=== PATIENT | male | born 1955 | race Caucasian/White ===

== ENCOUNTER → 2016-10-20 | Outpatient (REF) | payer OTHER, SELFPAY ==
[2016-10-20 18:44] LABS: MEAN CORPUSCULAR HEMOGLOBIN 28.9 pg (27.0-33.0); MEAN CORPUSCULAR HGB CONC 33.3 g/dl (32.0-36.5); MEAN CORPUSCULAR VOLUME 86.9 fl (80.0-96.0); RED CELL DISTRIBUTION WIDTH 12.8 % (11.5-14.5)
[2016-10-20 19:15] LABS: ALBUMIN/GLOBULIN RATIO 1.29 (1.00-1.93); ALKALINE PHOSPHATASE 117 U/L (45-117); ALT/SGPT 31 U/L (12-78); ANION GAP 7 MEQ/L (8-16); AST/SGOT 24 U/L (15-37); BILIRUBIN,TOTAL 0.5 MG/DL (0.2-1.0); BLOOD UREA NITROGEN 20 MG/DL (7-18); CALCIUM LEVEL 8.8 MG/DL (8.8-10.2); CARBON DIOXIDE LEVEL 29 MEQ/L (21-32); CHLORIDE LEVEL 104 MEQ/L (98-107); CHOLESTEROL LEVEL 130 MG/DL (<200); CREATININE FOR GFR 1.09 MG/DL (0.70-1.30); FREE T4 0.91 NG/DL (0.76-1.46); GLOMERULAR FILTRATION RATE > 60.0 (>49); GLUCOSE, FASTING 102 MG/DL (80-110); POTASSIUM SERUM 4.5 MEQ/L (3.5-5.1); SODIUM LEVEL 140 MEQ/L (136-145); TOTAL PROTEIN 7.1 GM/DL (6.4-8.2); TRIGLYCERIDES LEVEL 78 MG/DL (<150)
== END ==
LOC: M SFHCADAM 08:09
PROVIDERS: ATTEND Physician Assistant
DX: E78.4 Other hyperlipidemia (principal); I10 Essential (primary) hypertension; E55.9 Vitamin D deficiency, unspecified

== ENCOUNTER 2017-09-09 13:23 | Emergency (ER) | payer SELFPAY, OTHER ==
[2017-09-09 14:41] LABS: BASO % 0.4 % (0.0-1.0); EOS # 0.1 10^3/uL (0.0-0.50); EOS % 0.9 % (0.0-3.0); HEMATOCRIT 43.8 % (42.0-52.0); HEMOGLOBIN 14.5 g/dl (14.0-18.0); IMMATURE GRANULOCYTE % 0.2 % (0-0); KETONE, URINE AUTO RFX NEGATIVE (NEGATIVE); LEUKOCYTE ESTERASE UR AUTO RFX NEGATIVE (NEGATIVE); LYMPH % 24.3 % (24.0-44.0); MEAN CORPUSCULAR HEMOGLOBIN 27.6 pg (27.0-33.0); MEAN CORPUSCULAR HGB CONC 33.1 g/dl (32.0-36.5); MEAN CORPUSCULAR VOLUME 83.3 fl (80.0-96.0); MONO # 0.6 10^3/uL (0.0-0.8); MONO % 7.5 % (0.0-5.0); NEUTROPHILS # 5.4 10^3/uL (1.8-7.7); NEUTROPHILS % 66.7 % (36.0-66.0); NITRITE, URINE AUTO RFX NEGATIVE (NEGATIVE); PLATELET COUNT, AUTOMATED 241 10^3/uL (150-450); RBC, URINE AUTO RFX 0 /HPF (0-3); RED BLOOD COUNT 5.26 10^6/uL (4.30-6.10); SPECIFIC GRAVITY UR AUTO RFX 1.009 (1.002-1.035); SQUAM EPITHELIAL CELL UR AURFX 0 /HPF (0-6); WBC, URINE AUTO RFX 1 /HPF (0-3); WHITE BLOOD COUNT 8.1 10^3/uL (4.0-10.0)
[2017-09-09 15:23] LABS: ANION GAP 5 MEQ/L (8-16); BLOOD UREA NITROGEN 16 MG/DL (7-18); CARBON DIOXIDE LEVEL 28 MEQ/L (21-32); CHLORIDE LEVEL 104 MEQ/L (98-107); CREATININE FOR GFR 1.01 MG/DL (0.70-1.30); GLOMERULAR FILTRATION RATE > 60.0 (>49); GLUCOSE, FASTING 99 MG/DL (70-100); POTASSIUM SERUM 4.6 MEQ/L (3.5-5.1); SODIUM LEVEL 137 MEQ/L (136-145)
== END 2017-09-09 18:29 | disposition home or self-care (01) ==
LOC: M ED 13:23
DX: K40.90 Unilateral inguinal hernia, without obstruction or gangrene, not specified as recurrent (principal); I10 Essential (primary) hypertension; E78.4 Other hyperlipidemia; Z87.891 Personal history of nicotine dependence
CPT/HCPCS: 76857

== ENCOUNTER → 2017-09-18 | Outpatient (CLI) | payer OTHER | LOC: M EKG 11:13 | DX: Z01.818 Encounter for other preprocedural examination (principal); I10 Essential (primary) hypertension; E78.00 Pure hypercholesterolemia, unspecified | CPT/HCPCS: 93005 ==

== ENCOUNTER 2017-09-24 08:33 | Day surgery (SDC) | payer OTHER, SELFPAY ==
[2017-09-24] MEDS ORDERED: PROPOFOL 200 MG/20 ML VIAL As Ordered (08:40)
[2017-09-24] MEDS ORDERED: ROCURONIUM BROMIDE 50 MG/5 ML VIAL As Ordered ×2 (08:40→11:16)
[2017-09-24] MEDS ORDERED: MIDAZOLAM INJ 2 MG/2 ML VIAL (J2250) As Ordered (08:40)
[2017-09-24] MEDS ORDERED: fentaNYL 250 MCG/5 ML INJECTION (J3010) As Ordered (08:40)
[2017-09-24] MEDS ORDERED: LIDOCAINE 2% INJ 100 MG/5 ML SDV (FOR ANES.) As Ordered (08:40)
[2017-09-24] MEDS: LR 1,000 ML IV (09:25)
[2017-09-24] MEDS ORDERED: dexameTHASONE 4 MG/ML 1ML VIAL (J1100) As Ordered ×2 (10:54)
[2017-09-24] MEDS: CEFAZOLIN SOD 1 GM in APPROPRIATE DILUENT 1 EA IV (11:00)
[2017-09-24] MEDS ORDERED: ePHEDrine INJ 50 MG/ML VIAL As Ordered (11:14)
[2017-09-24] MEDS ORDERED: GLYCOPYRROLATE INJ 0.2 MG/ML 2 ML VIAL As Ordered ×2 (11:46)
[2017-09-24] MEDS ORDERED: KETOROLAC 60 MG/2 ML VIAL (J1885) As Ordered (11:47)
[2017-09-24] MEDS ORDERED: ONDANSETRON 4MG/2ML VIAL (J2405) As Ordered (11:47)
[2017-09-24] MEDS: BUPIVACAINE HCL 0.25% 30 ML VIAL As Ordered (12:29)
[2017-09-24] MEDS: LIDOCAINE W/EPINEPHRINE 1% 20ML VIAL As Ordered (12:29)
[2017-09-24] MEDS ORDERED: PERCOCET 5MG/325MG TAB As Ordered (12:46)
[2017-09-24] MEDS: PERCOCET 5MG/325MG TAB PO (12:50)
[2017-09-24] MEDS ORDERED: ONDANSETRON 4MG/2ML VIAL (J2405) IV ×2 (13:00)
[2017-09-24] MEDS ORDERED: fentaNYL 100 MCG/2 ML INJECTION (J3010) IV (13:00)
[2017-09-24] MEDS ORDERED: NS 1,000 ML IV (13:00)
[2017-09-24] MEDS ORDERED: LR 1,000 ML IV (13:00)
[2017-09-24] MEDS ORDERED: NORCO, ANEXSIA 5/325MG TABLET (HYDROcodone/ACETAMINOPHEN) PO (13:00)
== END 2017-09-24 15:45 | disposition home or self-care (01) ==
LOC: M SDC 08:33
DX: K40.90 Unilateral inguinal hernia, without obstruction or gangrene, not specified as recurrent (principal); I10 Essential (primary) hypertension; F41.9 Anxiety disorder, unspecified; E78.00 Pure hypercholesterolemia, unspecified; K21.9 Gastro-esophageal reflux disease without esophagitis; M54.9 Dorsalgia, unspecified; R06.83 Snoring; Z79.899 Other long term (current) drug therapy; Z79.82 Long term (current) use of aspirin
CPT/HCPCS: 49650

== ENCOUNTER → 2018-05-03 | Outpatient (REF) | payer OTHER ==
[2018-05-03 11:07] LABS: HEMATOCRIT 44.2 % (42.0-52.0); HEMOGLOBIN 14.3 g/dl (13.5-17.5); MEAN CORPUSCULAR HEMOGLOBIN 27.4 pg (27.0-33.0); MEAN CORPUSCULAR HGB CONC 32.4 g/dl (32.0-36.5); MEAN CORPUSCULAR VOLUME 84.8 fl (80.0-96.0); PLATELET COUNT, AUTOMATED 246 10^3/uL (150-450); RED BLOOD COUNT 5.21 10^6/uL (4.30-6.10); RED CELL DISTRIBUTION WIDTH 13.5 % (11.5-14.5); WHITE BLOOD COUNT 6.9 10^3/uL (4.0-10.0)
[2018-05-03 11:14] LABS: ALBUMIN 3.9 GM/DL (3.2-5.2); ALBUMIN/GLOBULIN RATIO 1.18 (1.00-1.93); ALKALINE PHOSPHATASE 112 U/L (45-117); ALT/SGPT 30 U/L (12-78); ANION GAP 6 MEQ/L (8-16); AST/SGOT 18 U/L (7-37); BILIRUBIN,TOTAL 0.5 MG/DL (0.2-1.0); BLOOD UREA NITROGEN 23 MG/DL (7-18); CALCIUM LEVEL 9.2 MG/DL (8.8-10.2); CARBON DIOXIDE LEVEL 28 MEQ/L (21-32); CHLORIDE LEVEL 104 MEQ/L (98-107); CHOLESTEROL LEVEL 133 MG/DL (<200); CHOLESTEROL RISK RATIO 3.166 (<5); CREATININE FOR GFR 0.98 MG/DL (0.70-1.30); GLOMERULAR FILTRATION RATE > 60.0 (>49); GLUCOSE, FASTING 96 MG/DL (70-100); HDL CHOLESTEROL 42 MG/DL (>40); LDL CHOLESTEROL 70 MG/DL (<100); NON-HDL-C 91 MG/DL; POTASSIUM SERUM 5.1 MEQ/L (3.5-5.1); SODIUM LEVEL 138 MEQ/L (136-145); TOTAL PROTEIN 7.2 GM/DL (6.4-8.2); TRIGLYCERIDES LEVEL 105 MG/DL (<150)
== END ==
LOC: M SFHCADAM 08:10
DX: I10 Essential (primary) hypertension (principal); E78.4 Other hyperlipidemia
CPT/HCPCS: 80053

== ENCOUNTER → 2019-09-25 | Outpatient (REF) | payer OTHER ==
[~2019-09-25] MED LIST: ASPI81TA26 PO; ATOR40TA75 PO; CALC600T31 PO; FISH1000 PO; LISI10TA4 PO; MULT1TAB10 PO; VITA-110 PO; cholesterol med
[2019-09-25 15:31] LABS: HEMATOCRIT 45.6 % (42.0-52.0); HEMOGLOBIN 15.1 g/dl (13.5-17.5); MEAN CORPUSCULAR HEMOGLOBIN 28.5 pg (27.0-33.0); MEAN CORPUSCULAR HGB CONC 33.1 g/dl (32.0-36.5); PLATELET COUNT, AUTOMATED 273 10^3/uL (150-450); WHITE BLOOD COUNT 9.2 10^3/uL (4.0-10.0)
[2019-09-25 16:05] LABS: ALBUMIN 4.4 GM/DL (3.2-5.2); ALT/SGPT 33 U/L (12-78); BILIRUBIN,TOTAL 0.5 MG/DL (0.2-1.0); BLOOD UREA NITROGEN 18 MG/DL (7-18); CALCIUM LEVEL 9.2 MG/DL (8.8-10.2); CARBON DIOXIDE LEVEL 29 MEQ/L (21-32); CHLORIDE LEVEL 101 MEQ/L (98-107); CHOLESTEROL LEVEL 158 MG/DL (<200); CHOLESTEROL RISK RATIO 4.051 (<5); CREATININE FOR GFR 1.16 MG/DL (0.70-1.30); FREE T4 1.01 NG/DL (0.76-1.46); GLOMERULAR FILTRATION RATE > 60.0 (>49); GLUCOSE, FASTING 91 MG/DL (70-100); HDL CHOLESTEROL 39 MG/DL (>40); LDL CHOLESTEROL 94 MG/DL (<100); NON-HDL-C 119 MG/DL; POTASSIUM SERUM 4.9 MEQ/L (3.5-5.1); SODIUM LEVEL 137 MEQ/L (136-145); TOTAL PROTEIN 7.8 GM/DL (6.4-8.2); TRIGLYCERIDES LEVEL 127 MG/DL (<150)
[2019-09-25 16:07] LABS: CREATININE, URINE 81.9 MG/DL; MALB URINE SIEMENS 7.8 MG/L; MAU/CREAT RATIO 9.5 MCG/MG (0.0-30.0)
== END ==
LOC: M SFHCADAM 12:04
PROVIDERS: ATTEND Physician Assistant
DX: Z12.5 Encounter for screening for malignant neoplasm of prostate (principal); I10 Essential (primary) hypertension; E78.00 Pure hypercholesterolemia, unspecified

== ENCOUNTER → 2021-01-27 | Outpatient (REF) | payer OTHER ==
[~2021-01-27] MED LIST changes: +LISI10TA22 PO; -LISI10TA4 PO
[2021-01-27 13:14] LABS: HEMOGLOBIN 14.6 g/dl (13.5-17.5); MEAN CORPUSCULAR HGB CONC 31.7 g/dl (32.0-36.5); MEAN CORPUSCULAR VOLUME 88.1 fl (80.0-96.0); PLATELET COUNT, AUTOMATED 231 10^3/uL (150-450); RED BLOOD COUNT 5.22 10^6/uL (4.30-6.10); WHITE BLOOD COUNT 6.6 10^3/uL (4.0-10.0)
[2021-01-27 14:42] LABS: ALBUMIN 3.9 GM/DL (3.2-5.2); ALT/SGPT 31 U/L (12-78); BILIRUBIN,TOTAL 0.4 MG/DL (0.2-1.0); BLOOD UREA NITROGEN 21 MG/DL (7-18); CALCIUM LEVEL 9.2 MG/DL (8.8-10.2); CARBON DIOXIDE LEVEL 31 MEQ/L (21-32); CHLORIDE LEVEL 104 MEQ/L (98-107); CHOLESTEROL LEVEL 138 MG/DL (<200); CREATININE FOR GFR 0.99 MG/DL (0.70-1.30); GLOMERULAR FILTRATION RATE > 60.0 (>49); GLUCOSE, FASTING 97 MG/DL (70-100); HDL CHOLESTEROL 46 MG/DL (>40); LDL CHOLESTEROL 74 MG/DL (<100); NON-HDL-C 92 MG/DL; SODIUM LEVEL 139 MEQ/L (136-145); TOTAL PROTEIN 7.1 GM/DL (6.4-8.2); TRIGLYCERIDES LEVEL 91 MG/DL (<150)
[2021-01-27 14:45] LABS: CREATININE, URINE 79.3 MG/DL; MALB URINE SIEMENS < 5.0 MG/L; MAU/CREAT RATIO 6.3 MCG/MG (0.0-30.0)
[2021-01-27 14:49] LABS: TOTAL 25(OH) VITAMIN D 24.1 NG/ML (30.0-100.0)
== END ==
LOC: M SFHCADAM 07:41
PROVIDERS: ATTEND Physician Assistant
DX: E78.00 Pure hypercholesterolemia, unspecified (principal); I10 Essential (primary) hypertension; Z12.5 Encounter for screening for malignant neoplasm of prostate; E55.9 Vitamin D deficiency, unspecified

== ENCOUNTER → 2021-09-18 | Outpatient (REF) | payer OTHER | LOC: M SFHCADAM 12:31 | PROVIDERS: ATTEND Physician Assistant | DX: I10 Essential (primary) hypertension (principal); E78.00 Pure hypercholesterolemia, unspecified ==

== ENCOUNTER → 2022-05-07 | Outpatient (REF) | payer OTHER ==
[2022-05-07 13:36] LABS: BLOOD UREA NITROGEN 20 MG/DL (7-18); CALCIUM LEVEL 9.1 MG/DL (8.8-10.2); CARBON DIOXIDE LEVEL 30 MEQ/L (21-32); CHLORIDE LEVEL 102 MEQ/L (98-107); CREATININE FOR GFR 1.01 MG/DL (0.70-1.30); GLOMERULAR FILTRATION RATE > 60.0 (>49); GLUCOSE, FASTING 97 MG/DL (70-100); POTASSIUM SERUM 4.3 MEQ/L (3.5-5.1); SODIUM LEVEL 137 MEQ/L (136-145)
== END ==
LOC: M SFHCADAM 07:03
PROVIDERS: ATTEND Physician Assistant
DX: E78.00 Pure hypercholesterolemia, unspecified (principal); I10 Essential (primary) hypertension

== ENCOUNTER → 2022-10-29 | Outpatient (REF) | payer OTHER, MEDICARE ==
[2022-10-29 14:33] LABS: HEMATOCRIT 44.8 % (42.0-52.0); HEMOGLOBIN 14.3 g/dl (13.5-17.5); MEAN CORPUSCULAR HGB CONC 31.9 g/dl (32.0-36.5); MEAN CORPUSCULAR VOLUME 87.8 fl (80.0-96.0); PLATELET COUNT, AUTOMATED 258 10^3/uL (150-450)
[2022-10-29 14:43] LABS: ALBUMIN 3.8 G/DL (3.2-5.2); ALKALINE PHOSPHATASE 95 U/L (46-116); ALT/SGPT 21 U/L (7.0-40); AST/SGOT 21 U/L (<34); BILIRUBIN,TOTAL 0.5 MG/DL (0.3-1.2); BLOOD UREA NITROGEN 24 MG/DL (9-23); CALCIUM LEVEL 9.3 MG/DL (8.3-10.6); CARBON DIOXIDE LEVEL 31 MMOL/L (20-31); CHLORIDE LEVEL 102 MMOL/L (98-107); CHOLESTEROL LEVEL 119 MG/DL (<200); CREATININE FOR GFR 0.98 MG/DL (0.70-1.30); FREE T4 0.97 NG/DL (0.89-1.76); GLOMERULAR FILTRATION RATE > 60.0 (>49); GLUCOSE, FASTING 97 MG/DL (74-106); HDL CHOLESTEROL 38.3 MG/DL (>40); LDL CHOLESTEROL 65.9 MG/DL (<100); NON-HDL-C 80.7 MG/DL; POTASSIUM SERUM 4.9 MMOL/L (3.5-5.1); SODIUM LEVEL 138 MMOL/L (136-145); THYROID STIMULATING HORMONE 2.647 uIU/ML (0.55-4.78); TOTAL PROTEIN 6.7 G/DL (5.7-8.2); TRIGLYCERIDES LEVEL 74 MG/DL (<150)
[2022-10-29 15:09] LABS: HEMOGLOBIN A1c 5.8 % (4.0-6.0)
== END ==
LOC: M SFHCADAM 07:19
PROVIDERS: ATTEND Physician Assistant
DX: Z00.00 Encounter for general adult medical examination without abnormal findings (principal); Z12.5 Encounter for screening for malignant neoplasm of prostate; I10 Essential (primary) hypertension; E78.00 Pure hypercholesterolemia, unspecified; R63.5 Abnormal weight gain; Z13.1 Encounter for screening for diabetes mellitus
CPT/HCPCS: 80053; 80061; 83036; 84439; 84443; 85027; G0103

== ENCOUNTER 2023-01-24 12:25 | Inpatient (IN) | payer OTHER, MEDICARE ==
[~2023-01-24] VITALS: Ht 182.9 cm; Wt 122.1 kg
[2023-01-24] MEDS ORDERED: FLUT50SP17 NARES (13:06)
[2023-01-24] MEDS ORDERED: LOSA50TA28 (13:06)
[2023-01-24] MEDS ORDERED: HYDR-3490 PO (13:06)
[2023-01-24 13:36] LABS: BASO # 0.1 10^3/uL (0.0-0.2); BASO % 0.3 % (0.0-1.0); HEMOGLOBIN 15.1 g/dl (13.5-17.5); LYMPH # 1.2 10^3/uL (1.5-5.0); MEAN CORPUSCULAR HEMOGLOBIN 27.6 pg (27.0-33.0); MEAN CORPUSCULAR HGB CONC 32.8 g/dl (32.0-36.5); MEAN CORPUSCULAR VOLUME 83.9 fl (80.0-96.0); MONO # 1.4 10^3/uL (0.0-0.8); MONO % 7.4 % (2.0-8.0); NEUTROPHILS # 16.8 10^3/uL (1.5-8.5); NEUTROPHILS % 85.8 % (36.0-66.0); PLATELET COUNT, AUTOMATED 273 10^3/uL (150-450); RED BLOOD COUNT 5.48 10^6/uL (4.30-6.10); WHITE BLOOD COUNT 19.5 10^3/uL (4.0-10.0)
[2023-01-24 14:13] LABS: ALBUMIN 4.2 G/DL (3.2-5.2); ALKALINE PHOSPHATASE 123 U/L (46-116); ALT/SGPT 23 U/L (7.0-40); AST/SGOT 14 U/L (<34); BILIRUBIN,DIRECT 0.3 MG/DL (<0.4); BILIRUBIN,TOTAL 0.9 MG/DL (0.3-1.2); BLOOD UREA NITROGEN 22 MG/DL (9-23); CALCIUM LEVEL 9.2 MG/DL (8.3-10.6); CARBON DIOXIDE LEVEL 30 MMOL/L (20-31); CHLORIDE LEVEL 95 MMOL/L (98-107); CREATININE FOR GFR 1.03 MG/DL (0.70-1.30); GLOMERULAR FILTRATION RATE > 60.0 (>49); GLUCOSE, FASTING 140 MG/DL (74-106); LIPASE 33 U/L (12-53); POTASSIUM SERUM 4.3 MMOL/L (3.5-5.1); SODIUM LEVEL 134 MMOL/L (136-145); TOTAL PROTEIN 7.4 G/DL (5.7-8.2)
[2023-01-24] MEDS ORDERED: ISOVUE-370 76% 100ML VIAL As Ordered ONE (15:11)
[2023-01-24] MEDS ORDERED: MORPHINE 4 MG/ML 1ML VIAL IV ONE (15:25)
[2023-01-24] MEDS ORDERED: PIPERACILLIN/TAZOBACTAM SOD 3.375 GM in D5W MINI-BAG PLUS 50 ML IV ONE (15:25)
[2023-01-24] MEDS ORDERED: ONDANSETRON 4MG 2ML VIAL IV ONE (15:25)
[2023-01-24] MEDS ORDERED: NS 1,000 ML IV ONE (15:25)
[2023-01-24] MEDS ORDERED: ACETAMINOPHEN 1000MG 100ML IV BAG IV ONE (16:10)
[2023-01-24 17:16] LABS: RSV AMPLIFICATION NEGATIVE (NEGATIVE)
[2023-01-24] MEDS ORDERED: LR 1,000 ML IV ONE (17:50)
[2023-01-24] MEDS ORDERED: THERTAB21 PO (18:32)
[2023-01-24] MEDS ORDERED: HOME MED LIST COMPLETE! XX SCH (18:35)
[2023-01-24] MEDS ORDERED: SODIUM CHLORIDE 0.9% 1000ML IV ONE (18:45)
[2023-01-24] MEDS ORDERED: LACTATED RINGER'S 1000 ML IV ONE (19:15)
[2023-01-24] MEDS ORDERED: ONDANSETRON 4MG 2ML VIAL IV PRN ×2 (19:20→21:20)
[2023-01-24] MEDS ORDERED: MORPHINE 2 MG/ML 1ML VIAL IV PRN (19:20)
[2023-01-24] MEDS ORDERED: MORPHINE 4 MG/ML 1ML VIAL IV PRN (19:20)
[2023-01-24] MEDS ORDERED: ZOSYN 3.375GM VIAL As Ordered ONE (20:06)
[2023-01-24] MEDS ORDERED: ROCURONIUM BROMIDE 50MG/5ML VIAL As Ordered ONE (21:06)
[2023-01-24] MEDS ORDERED: MIDAZOLAM INJ 2MG/2ML VIAL As Ordered ONE (21:06)
[2023-01-24] MEDS ORDERED: VASOPRESSIN INJ 20UNITS/ML 1ML VIAL As Ordered ONE (21:06)
[2023-01-24] MEDS ORDERED: fentaNYL 250 MCG/5 ML INJECTION As Ordered ONE (21:06)
[2023-01-24] MEDS ORDERED: ONDANSETRON 4MG 2ML VIAL As Ordered ONE (21:06)
[2023-01-24] MEDS ORDERED: LIDOCAINE 2% 100MG/5ML SDV (FOR ANES.) As Ordered ONE (21:06)
[2023-01-24] MEDS ORDERED: fentaNYL 100 MCG/2 ML INJECTION As Ordered ONE (21:06)
[2023-01-24] MEDS ORDERED: PHENYLEPHRINE 10MG/ML 1ML VIAL As Ordered ONE (21:06)
[2023-01-24] MEDS ORDERED: METOCLOPRAMIDE INJ 10MG/2ML VIAL As Ordered ONE (21:06)
[2023-01-24] MEDS ORDERED: ACETAMINOPHEN 1000MG 100ML IV BAG As Ordered ONE (21:06)
[2023-01-24] MEDS ORDERED: propofoL 200 MG/20 ML VIAL As Ordered ONE (21:06)
[2023-01-24] MEDS ORDERED: SUGAMMADEX SODIUM 500 MG/5 ML VIAL (BRIDION) As Ordered ONE (21:09)
[2023-01-24] MEDS ORDERED: HYDROMORPHONE HCL 0.5 MG/ 0.5 ML SYRINGE IV PRN (21:20)
[2023-01-24] MEDS ORDERED: LR 1,000 ML IV SCH (21:20)
[2023-01-24] MEDS ORDERED: fentaNYL 100 MCG/2 ML INJECTION IV PRN (21:20)
[2023-01-24] MEDS ORDERED: oxyCODONE 5MG TAB PO PRN (21:20)
[2023-01-24 22:45] VITALS: BP 136/71; TEMP 98.6; O2SAT 92
[2023-01-24] MEDS: KETOROLAC 30 MG/ML 1ML VIAL IV SCH (23:03)
[2023-01-24 23:15] VITALS: BP 137/69; TEMP 98.4; O2SAT 92
[2023-01-24] MEDS ORDERED: hydrALAZINE 20MG/ML 1ML VIAL IV PRN (23:15)
[2023-01-24] MEDS: NS 1,000 ML IV SCH (23:21)
[2023-01-24] MEDS: PIPERACILLIN/TAZOBACTAM SOD 3.375 GM in D5W MINI-BAG PLUS 50 ML IV SCH (23:22)
[2023-01-24 23:45] VITALS: BP 118/71; TEMP 98.5; O2SAT 94
[2023-01-25] VITALS (8 sets, daily range): BP systolic 112–148; BP diastolic 58–81; TEMP 96.8–99.3; O2SAT 91–95
[2023-01-25] MEDS: PIPERACILLIN/TAZOBACTAM SOD 3.375 GM in D5W MINI-BAG PLUS 50 ML IV SCH ×4 (03:44→22:26)
[2023-01-25] MEDS: KETOROLAC 30 MG/ML 1ML VIAL IV SCH ×4 (03:44→22:27)
[2023-01-25 04:11] LABS: HEMATOCRIT 41.8 % (42.0-52.0); HEMOGLOBIN 13.9 g/dl (13.5-17.5); MEAN CORPUSCULAR HEMOGLOBIN 27.9 pg (27.0-33.0); MEAN CORPUSCULAR HGB CONC 33.3 g/dl (32.0-36.5); MEAN CORPUSCULAR VOLUME 83.8 fl (80.0-96.0); PLATELET COUNT, AUTOMATED 182 10^3/uL (150-450); RED BLOOD COUNT 4.99 10^6/uL (4.30-6.10); WHITE BLOOD COUNT 14.5 10^3/uL (4.0-10.0)
[2023-01-25 04:33] LABS: BLOOD UREA NITROGEN 26 MG/DL (9-23); CALCIUM LEVEL 8.4 MG/DL (8.3-10.6); CARBON DIOXIDE LEVEL 28 MMOL/L (20-31); CHLORIDE LEVEL 99 MMOL/L (98-107); CREATININE FOR GFR 1.21 MG/DL (0.70-1.30); GLOMERULAR FILTRATION RATE > 60.0 (>49); GLUCOSE, FASTING 125 MG/DL (74-106); POTASSIUM SERUM 4.7 MMOL/L (3.5-5.1); SODIUM LEVEL 134 MMOL/L (136-145)
[2023-01-25] MEDS ORDERED: NS 500 ML IV ONE (04:50)
[2023-01-25] MEDS: NS 1,000 ML IV SCH (08:23)
[2023-01-25] MEDS ORDERED: GLUCAGON INJ 1MG VIAL SC PRN (10:55)
[2023-01-25] MEDS ORDERED: DEXTROSE 50% 50ML SYRINGE IV PRN (10:55)
[2023-01-25] MEDS ORDERED: GLUCOSE 4GM CHEW TABLET PO PRN (10:55)
[2023-01-25] MEDS: D5W/0.45% SODIUM CHLORIDE 1,000 ML IV SCH ×2 (11:50→22:26)
[2023-01-25] MEDS ORDERED: THIAMINE INJection 500 MG in NS 100 ML IV SCH (13:00)
[2023-01-26 02:00] VITALS: BP 138/82; TEMP 98.8; O2SAT 91
[2023-01-26] MEDS: KETOROLAC 30 MG/ML 1ML VIAL IV SCH (04:33)
[2023-01-26] MEDS: PIPERACILLIN/TAZOBACTAM SOD 3.375 GM in D5W MINI-BAG PLUS 50 ML IV SCH ×4 (04:33→22:35)
[2023-01-26 06:00] VITALS: BP 127/82; TEMP 99; O2SAT 91
[2023-01-26 06:24] LABS: HEMATOCRIT 37.9 % (42.0-52.0); HEMOGLOBIN 12.5 g/dl (13.5-17.5); MEAN CORPUSCULAR HEMOGLOBIN 27.7 pg (27.0-33.0); PLATELET COUNT, AUTOMATED 178 10^3/uL (150-450); RED BLOOD COUNT 4.51 10^6/uL (4.30-6.10); WHITE BLOOD COUNT 13.6 10^3/uL (4.0-10.0)
[2023-01-26 06:45] LABS: CREATININE FOR GFR 1.38 MG/DL (0.70-1.30); GLOMERULAR FILTRATION RATE 54.9 (>49)
[2023-01-26 08:00] VITALS: BP 136/92; TEMP 98.1; O2SAT 90
[2023-01-26] MEDS: D5W/0.45% SODIUM CHLORIDE 1,000 ML IV SCH ×3 (11:17→22:35)
[2023-01-26 12:00] VITALS: BP 114/71; TEMP 98.2; O2SAT 90
[2023-01-26 16:00] VITALS: BP 148/93; TEMP 98.8; O2SAT 93
[2023-01-26 21:00] VITALS: BP 149/89; TEMP 98.3; O2SAT 93
[2023-01-27 02:00] VITALS: BP 152/90; TEMP 99; O2SAT 93
[2023-01-27] MEDS: D5W/0.9% SODIUM CHLORIDE 1,000 ML IV SCH ×3 (03:00→16:42)
[2023-01-27] MEDS: PIPERACILLIN/TAZOBACTAM SOD 3.375 GM in D5W MINI-BAG PLUS 50 ML IV SCH ×3 (04:40→16:02)
[2023-01-27 05:49] LABS: HEMOGLOBIN 13.1 g/dl (13.5-17.5); MEAN CORPUSCULAR HEMOGLOBIN 27.4 pg (27.0-33.0); MEAN CORPUSCULAR HGB CONC 32.8 g/dl (32.0-36.5); MEAN CORPUSCULAR VOLUME 83.7 fl (80.0-96.0); PLATELET COUNT, AUTOMATED 197 10^3/uL (150-450); RED BLOOD COUNT 4.78 10^6/uL (4.30-6.10)
[2023-01-27 06:00] VITALS: BP 155/94; TEMP 99; O2SAT 92
[2023-01-27 06:15] LABS: BLOOD UREA NITROGEN 22 MG/DL (9-23); CALCIUM LEVEL 8.5 MG/DL (8.3-10.6); CARBON DIOXIDE LEVEL 30 MMOL/L (20-31); CHLORIDE LEVEL 96 MMOL/L (98-107); GLOMERULAR FILTRATION RATE > 60.0 (>49); GLUCOSE, FASTING 131 MG/DL (74-106); POTASSIUM SERUM 3.7 MMOL/L (3.5-5.1); SODIUM LEVEL 132 MMOL/L (136-145)
[2023-01-27] MEDS: D5W/0.45% SODIUM CHLORIDE 1,000 ML IV SCH (06:48)
[2023-01-27 10:00] VITALS: BP 155/94; TEMP 97.7; O2SAT 90
[2023-01-27 14:00] VITALS: BP 153/89; TEMP 99.1; O2SAT 91
[2023-01-27 18:00] VITALS: BP 143/83; TEMP 99.1; O2SAT 90
[2023-01-27 20:50] VITALS: BP 150/99; TEMP 99; O2SAT 90
[2023-01-27] MEDS: LOSARTAN 50MG TABLET PO SCH (21:56)
[2023-01-27] MEDS: PIPERACILLIN/TAZOBACTAM SOD 4.5 GM in D5W MINI-BAG PLUS 50 ML IV SCH (21:57)
[2023-01-28 01:50] VITALS: BP 135/78; TEMP 98.4; O2SAT 90
[2023-01-28] MEDS: PIPERACILLIN/TAZOBACTAM SOD 4.5 GM in D5W MINI-BAG PLUS 50 ML IV SCH ×4 (04:04→22:19)
[2023-01-28 05:30] VITALS: BP 148/96; TEMP 98.1; O2SAT 94
[2023-01-28 06:50] LABS: HEMATOCRIT 40.1 % (42.0-52.0); HEMOGLOBIN 12.9 g/dl (13.5-17.5); MEAN CORPUSCULAR HEMOGLOBIN 27.7 pg (27.0-33.0); MEAN CORPUSCULAR HGB CONC 32.2 g/dl (32.0-36.5); MEAN CORPUSCULAR VOLUME 86.2 fl (80.0-96.0); PLATELET COUNT, AUTOMATED 232 10^3/uL (150-450); RED BLOOD COUNT 4.65 10^6/uL (4.30-6.10)
[2023-01-28 07:11] LABS: ERYTHROCYTE SEDIMENTATION RATE 108 mm/hr (0-20)
[2023-01-28 07:24] LABS: BLOOD UREA NITROGEN 20 MG/DL (9-23); CARBON DIOXIDE LEVEL 34 MMOL/L (20-31); CHLORIDE LEVEL 97 MMOL/L (98-107); GLOMERULAR FILTRATION RATE > 60.0 (>49); GLUCOSE, FASTING 116 MG/DL (74-106); MAGNESIUM LEVEL 2.2 MG/DL (1.8-2.4); PHOSPHORUS LEVEL 2.6 MG/DL (2.4-5.1); POTASSIUM SERUM 3.4 MMOL/L (3.5-5.1); SODIUM LEVEL 137 MMOL/L (136-145)
[2023-01-28] MEDS: D5W/0.9% SODIUM CHLORIDE 1,000 ML IV SCH ×2 (07:36→13:20)
[2023-01-28] MEDS ORDERED: DOCUSATE SODIUM 100MG CAPSULE PO SCH (09:00)
[2023-01-28] MEDS: LOSARTAN 50MG TABLET PO SCH ×2 (09:38→20:17)
[2023-01-28 10:00] VITALS: BP 140/88; TEMP 97.9; O2SAT 96
[2023-01-28] MEDS ORDERED: PILL CUTTER 1 EACH XX PRN (13:40)
[2023-01-28 14:00] VITALS: BP 136/80; TEMP 98.1; O2SAT 94
[2023-01-28] MEDS: SIMETHICONE 80MG CHEW TAB PO SCH ×3 (14:14→20:18)
[2023-01-28] MEDS: KCL 10MEQ/100ML SWI (KRUN) 10 MEQ in IV 1 EA IV SCH ×4 (14:14→19:26)
[2023-01-28 18:00] VITALS: BP 147/85; TEMP 99.5; O2SAT 93
[2023-01-28] MEDS: DOCUSATE SOD LIQ 100MG/10ML UDC GT SCH (20:17)
[2023-01-28 21:00] VITALS: BP 146/89; TEMP 99.1; O2SAT 92
[2023-01-29 02:00] VITALS: BP 144/84; TEMP 98.8; O2SAT 92
[2023-01-29] MEDS: D5W/0.9% SODIUM CHLORIDE 1,000 ML IV SCH ×4 (04:30→23:33)
[2023-01-29] MEDS: PIPERACILLIN/TAZOBACTAM SOD 4.5 GM in D5W MINI-BAG PLUS 50 ML IV SCH ×2 (04:34→08:47)
[2023-01-29 06:00] VITALS: BP 140/81; TEMP 98.6; O2SAT 93
[2023-01-29 06:11] LABS: HEMOGLOBIN 12.6 g/dl (13.5-17.5); MEAN CORPUSCULAR HEMOGLOBIN 27.7 pg (27.0-33.0); MEAN CORPUSCULAR HGB CONC 33.2 g/dl (32.0-36.5); MEAN CORPUSCULAR VOLUME 83.5 fl (80.0-96.0); PLATELET COUNT, AUTOMATED 252 10^3/uL (150-450); RED BLOOD COUNT 4.55 10^6/uL (4.30-6.10)
[2023-01-29 06:18] LABS: ERYTHROCYTE SEDIMENTATION RATE 86 mm/hr (0-20)
[2023-01-29] MEDS: GASTROGRAFIN SOLUTION 30ML PO SCH ×2 (06:36→07:02)
[2023-01-29 06:43] LABS: BLOOD UREA NITROGEN 18 MG/DL (9-23); CALCIUM LEVEL 8.3 MG/DL (8.3-10.6); CARBON DIOXIDE LEVEL 30 MMOL/L (20-31); CHLORIDE LEVEL 96 MMOL/L (98-107); CREATININE FOR GFR 0.91 MG/DL (0.70-1.30); GLOMERULAR FILTRATION RATE > 60.0 (>49); GLUCOSE, FASTING 118 MG/DL (74-106); POTASSIUM SERUM 3.5 MMOL/L (3.5-5.1); SODIUM LEVEL 134 MMOL/L (136-145)
[2023-01-29] MEDS ORDERED: ISOVUE-370 76% 100ML VIAL As Ordered ONE (07:56)
[2023-01-29] MEDS: ATORVASTATIN 20 MG TAB PO SCH (08:46)
[2023-01-29] MEDS: SIMETHICONE 80MG CHEW TAB PO SCH ×4 (08:46→21:12)
[2023-01-29] MEDS: DOCUSATE SOD LIQ 100MG/10ML UDC GT SCH ×2 (08:46→21:24)
[2023-01-29] MEDS: LOSARTAN 50MG TABLET PO SCH ×2 (08:47→21:11)
[2023-01-29] MEDS: IPRATROPIUM 0.5MG/ALBUTEROL 2.5MG INH SOL UD 3ML (DUONEB) NEB SCH ×3 (11:18→20:30)
[2023-01-29 14:00] VITALS: BP 134/81; TEMP 98.6; O2SAT 91
[2023-01-29] MEDS: metroNIDAZOLE 500 MG in IV 1 EA IV SCH (16:25)
[2023-01-29] MEDS: CIPROFLOXACIN 400 MG in IV 1 EA IV SCH (16:25)
[2023-01-29 19:47] VITALS: BP 134/76; TEMP 98.6; O2SAT 94
[2023-01-30] MEDS: metroNIDAZOLE 500 MG in IV 1 EA IV SCH ×3 (01:05→17:30)
[2023-01-30 01:50] VITALS: BP 134/76; TEMP 98.1; O2SAT 88
[2023-01-30] MEDS: CIPROFLOXACIN 400 MG in IV 1 EA IV SCH ×2 (03:27→16:15)
[2023-01-30 05:31] VITALS: BP 141/82; TEMP 98.4; O2SAT 90
[2023-01-30] MEDS: D5W/0.9% SODIUM CHLORIDE 1,000 ML IV SCH ×2 (06:17→13:50)
[2023-01-30 06:31] LABS: HEMATOCRIT 35.6 % (42.0-52.0); HEMOGLOBIN 11.6 g/dl (13.5-17.5); MEAN CORPUSCULAR HEMOGLOBIN 27.5 pg (27.0-33.0); MEAN CORPUSCULAR HGB CONC 32.6 g/dl (32.0-36.5); MEAN CORPUSCULAR VOLUME 84.4 fl (80.0-96.0); PLATELET COUNT, AUTOMATED 237 10^3/uL (150-450); RED BLOOD COUNT 4.22 10^6/uL (4.30-6.10); WHITE BLOOD COUNT 11.6 10^3/uL (4.0-10.0)
[2023-01-30 06:57] LABS: BLOOD UREA NITROGEN 12 MG/DL (9-23); CALCIUM LEVEL 7.9 MG/DL (8.3-10.6); CARBON DIOXIDE LEVEL 32 MMOL/L (20-31); CHLORIDE LEVEL 96 MMOL/L (98-107); CREATININE FOR GFR 0.84 MG/DL (0.70-1.30); GLOMERULAR FILTRATION RATE > 60.0 (>49); GLUCOSE, FASTING 121 MG/DL (74-106); POTASSIUM SERUM 3.4 MMOL/L (3.5-5.1); SODIUM LEVEL 133 MMOL/L (136-145)
[2023-01-30] MEDS: IPRATROPIUM 0.5MG/ALBUTEROL 2.5MG INH SOL UD 3ML (DUONEB) NEB SCH ×4 (07:46→20:51)
[2023-01-30] MEDS: LOSARTAN 50MG TABLET PO SCH ×2 (09:32→22:25)
[2023-01-30] MEDS: SIMETHICONE 80MG CHEW TAB PO SCH ×4 (09:32→22:25)
[2023-01-30] MEDS: DOCUSATE SOD LIQ 100MG/10ML UDC GT SCH ×2 (09:32→22:24)
[2023-01-30] MEDS: ATORVASTATIN 20 MG TAB PO SCH (09:32)
[2023-01-30 10:00] VITALS: BP 137/79; TEMP 98.8; O2SAT 93
[2023-01-30 14:00] VITALS: BP 136/78; TEMP 98.8; O2SAT 94
[2023-01-30 18:00] VITALS: BP 139/78; TEMP 99; O2SAT 92
[2023-01-31] VITALS: BP 136/77; TEMP 98.4; O2SAT 91
[2023-01-31] MEDS: D5W/0.9% SODIUM CHLORIDE 1,000 ML IV SCH ×4 (00:01→20:30)
[2023-01-31] MEDS: metroNIDAZOLE 500 MG in IV 1 EA IV SCH ×3 (00:01→17:07)
[2023-01-31] MEDS: CIPROFLOXACIN 400 MG in IV 1 EA IV SCH ×2 (04:57→15:58)
[2023-01-31 06:26] VITALS: BP 134/74; TEMP 98.1; O2SAT 94
[2023-01-31 06:39] LABS: HEMATOCRIT 34.9 % (42.0-52.0); HEMOGLOBIN 11.5 g/dl (13.5-17.5); MEAN CORPUSCULAR HEMOGLOBIN 27.4 pg (27.0-33.0); MEAN CORPUSCULAR VOLUME 83.3 fl (80.0-96.0); PLATELET COUNT, AUTOMATED 278 10^3/uL (150-450); RED BLOOD COUNT 4.19 10^6/uL (4.30-6.10); WHITE BLOOD COUNT 10.9 10^3/uL (4.0-10.0)
[2023-01-31 06:46] LABS: BLOOD UREA NITROGEN 9 MG/DL (9-23); CALCIUM LEVEL 8.6 MG/DL (8.3-10.6); CARBON DIOXIDE LEVEL 31 MMOL/L (20-31); CHLORIDE LEVEL 96 MMOL/L (98-107); CREATININE FOR GFR 0.81 MG/DL (0.70-1.30); GLOMERULAR FILTRATION RATE > 60.0 (>49); GLUCOSE, FASTING 136 MG/DL (74-106); POTASSIUM SERUM 3.2 MMOL/L (3.5-5.1); SODIUM LEVEL 134 MMOL/L (136-145)
[2023-01-31] MEDS: IPRATROPIUM 0.5MG/ALBUTEROL 2.5MG INH SOL UD 3ML (DUONEB) NEB SCH ×4 (07:44→20:03)
[2023-01-31] MEDS ORDERED: KCL 10MEQ/100ML SWI (KRUN) 10 MEQ in IV 1 EA IV ONE (09:00)
[2023-01-31] MEDS: SIMETHICONE 80MG CHEW TAB PO SCH ×4 (09:05→21:56)
[2023-01-31] MEDS: ATORVASTATIN 20 MG TAB PO SCH (09:05)
[2023-01-31] MEDS: DOCUSATE SOD LIQ 100MG/10ML UDC GT SCH ×2 (09:05→21:54)
[2023-01-31] MEDS: LOSARTAN 50MG TABLET PO SCH ×2 (09:09→21:56)
[2023-01-31 10:00] VITALS: BP 135/76; TEMP 98.2; O2SAT 94
[2023-01-31 14:00] VITALS: BP 145/85; TEMP 99.6; O2SAT 90
[2023-01-31] MEDS: BISACODYL 10MG SUPP PR SCH (15:58)
[2023-01-31 18:00] VITALS: BP 145/80; TEMP 99.5; O2SAT 91
[2023-01-31 21:00] VITALS: BP 140/80; TEMP 97.7; O2SAT 93
[2023-02-01] MEDS: metroNIDAZOLE 500 MG in IV 1 EA IV SCH ×3 (00:57→17:24)
[2023-02-01 02:00] VITALS: BP 136/80; TEMP 99; O2SAT 93
[2023-02-01 04:00] VITALS: BP 152/91; TEMP 97.7; O2SAT 93
[2023-02-01] MEDS: CIPROFLOXACIN 400 MG in IV 1 EA IV SCH ×2 (04:22→15:28)
[2023-02-01] MEDS: D5W/0.9% SODIUM CHLORIDE 1,000 ML IV SCH ×2 (06:51→15:28)
[2023-02-01] MEDS: IPRATROPIUM 0.5MG/ALBUTEROL 2.5MG INH SOL UD 3ML (DUONEB) NEB SCH ×4 (07:20→20:27)
[2023-02-01 09:13] LABS: HEMATOCRIT 36.8 % (42.0-52.0); HEMOGLOBIN 11.9 g/dl (13.5-17.5); MEAN CORPUSCULAR HEMOGLOBIN 27.5 pg (27.0-33.0); MEAN CORPUSCULAR HGB CONC 32.3 g/dl (32.0-36.5); MEAN CORPUSCULAR VOLUME 85.2 fl (80.0-96.0); PLATELET COUNT, AUTOMATED 342 10^3/uL (150-450); RED BLOOD COUNT 4.32 10^6/uL (4.30-6.10); WHITE BLOOD COUNT 11.8 10^3/uL (4.0-10.0)
[2023-02-01 09:33] LABS: BLOOD UREA NITROGEN 8 MG/DL (9-23); CALCIUM LEVEL 8.7 MG/DL (8.3-10.6); CARBON DIOXIDE LEVEL 30 MMOL/L (20-31); CHLORIDE LEVEL 96 MMOL/L (98-107); CREATININE FOR GFR 0.82 MG/DL (0.70-1.30); GLOMERULAR FILTRATION RATE > 60.0 (>49); GLUCOSE, FASTING 118 MG/DL (74-106); POTASSIUM SERUM 3.3 MMOL/L (3.5-5.1); SODIUM LEVEL 136 MMOL/L (136-145)
[2023-02-01] MEDS: DOCUSATE SOD LIQ 100MG/10ML UDC GT SCH ×2 (09:55→21:18)
[2023-02-01] MEDS: LOSARTAN 50MG TABLET PO SCH ×2 (09:55→21:18)
[2023-02-01] MEDS: SIMETHICONE 80MG CHEW TAB PO SCH ×4 (09:56→21:18)
[2023-02-01] MEDS: BISACODYL 10MG SUPP PR SCH (09:56)
[2023-02-01] MEDS: ATORVASTATIN 20 MG TAB PO SCH (09:56)
[2023-02-01 10:00] VITALS: BP 144/79; TEMP 98.1; O2SAT 92
[2023-02-01] MEDS ORDERED: KCL 10MEQ/100ML SWI (KRUN) 10 MEQ in IV 1 EA IV ONE (10:00)
[2023-02-01 14:00] VITALS: BP 136/79; TEMP 98.2; O2SAT 95
[2023-02-01 18:00] VITALS: BP 138/80; TEMP 98.2; O2SAT 93
[2023-02-01] MEDS ORDERED: FAT EMULSION IV 250 ML IV ONE (18:00)
[2023-02-01 20:52] VITALS: BP 128/80; TEMP 98.8; O2SAT 92
[2023-02-01] MEDS: AMINO AC/ELECTROLYTE/DEX/CALC 1,000 ML IV SCH (21:24)
[2023-02-02] VITALS (10 sets, daily range): BP systolic 132–142; BP diastolic 62–81; TEMP 98.1–98.6; O2SAT 89–95
[2023-02-02] MEDS: metroNIDAZOLE 500 MG in IV 1 EA IV SCH ×3 (00:25→17:24)
[2023-02-02] MEDS: CIPROFLOXACIN 400 MG in IV 1 EA IV SCH ×2 (04:55→16:04)
[2023-02-02 06:09] LABS: HEMATOCRIT 35.5 % (42.0-52.0); HEMOGLOBIN 11.7 g/dl (13.5-17.5); MEAN CORPUSCULAR HEMOGLOBIN 27.4 pg (27.0-33.0); MEAN CORPUSCULAR VOLUME 83.1 fl (80.0-96.0); PLATELET COUNT, AUTOMATED 353 10^3/uL (150-450); RED BLOOD COUNT 4.27 10^6/uL (4.30-6.10); WHITE BLOOD COUNT 11.6 10^3/uL (4.0-10.0)
[2023-02-02 06:32] LABS: BLOOD UREA NITROGEN 7 MG/DL (9-23); CALCIUM LEVEL 8.9 MG/DL (8.3-10.6); CARBON DIOXIDE LEVEL 29 MMOL/L (20-31); CHLORIDE LEVEL 95 MMOL/L (98-107); GLOMERULAR FILTRATION RATE > 60.0 (>49); GLUCOSE, FASTING 136 MG/DL (74-106); MAGNESIUM LEVEL 1.8 MG/DL (1.8-2.4); POTASSIUM SERUM 3.4 MMOL/L (3.5-5.1); SODIUM LEVEL 132 MMOL/L (136-145)
[2023-02-02] MEDS: IPRATROPIUM 0.5MG/ALBUTEROL 2.5MG INH SOL UD 3ML (DUONEB) NEB SCH ×3 (07:41→19:48)
[2023-02-02] MEDS: SIMETHICONE 80MG CHEW TAB PO SCH ×4 (08:28→20:08)
[2023-02-02] MEDS: BISACODYL 10MG SUPP PR SCH ×4 (08:28→20:08)
[2023-02-02] MEDS: DOCUSATE SOD LIQ 100MG/10ML UDC GT SCH ×2 (08:28→20:07)
[2023-02-02] MEDS: LOSARTAN 50MG TABLET PO SCH ×2 (08:28→20:08)
[2023-02-02] MEDS: ATORVASTATIN 20 MG TAB PO SCH (08:29)
[2023-02-02] MEDS: AMINO AC/ELECTROLYTE/DEX/CALC 1,000 ML IV SCH ×2 (09:43→18:23)
[2023-02-02] MEDS ORDERED: BISACODYL 10MG SUPP PR ONE (12:00)
[2023-02-02] MEDS ORDERED: FAT EMULSION IV 250 ML IV ONE (18:00)
[2023-02-03] VITALS (7 sets, daily range): BP systolic 130–137; BP diastolic 72–78; TEMP 97.9–98.6; O2SAT 90–92
[2023-02-03] MEDS: metroNIDAZOLE 500 MG in IV 1 EA IV SCH ×3 (01:15→17:53)
[2023-02-03] MEDS: CIPROFLOXACIN 400 MG in IV 1 EA IV SCH ×2 (05:04→16:39)
[2023-02-03] MEDS: AMINO AC/ELECTROLYTE/DEX/CALC 1,000 ML IV SCH (05:31)
[2023-02-03] MEDS: IPRATROPIUM 0.5MG/ALBUTEROL 2.5MG INH SOL UD 3ML (DUONEB) NEB SCH ×3 (07:44→19:47)
[2023-02-03] MEDS: BISACODYL 10MG SUPP PR SCH (09:00)
[2023-02-03] MEDS: ATORVASTATIN 20 MG TAB PO SCH (09:33)
[2023-02-03] MEDS: DOCUSATE SOD LIQ 100MG/10ML UDC GT SCH (09:33)
[2023-02-03] MEDS: SIMETHICONE 80MG CHEW TAB PO SCH ×4 (09:33→19:50)
[2023-02-03] MEDS: LOSARTAN 50MG TABLET PO SCH ×2 (09:34→19:49)
[2023-02-03] MEDS: DOCUSATE SODIUM 100MG CAPSULE PO SCH (19:49)
[2023-02-04 00:10] VITALS: BP 135/73; TEMP 98.1; O2SAT 91
[2023-02-04] MEDS: metroNIDAZOLE 500 MG in IV 1 EA IV SCH ×2 (00:36→08:21)
[2023-02-04] MEDS: CIPROFLOXACIN 400 MG in IV 1 EA IV SCH (04:01)
[2023-02-04 04:19] VITALS: BP 132/72; TEMP 98.6; O2SAT 92
[2023-02-04] MEDS: IPRATROPIUM 0.5MG/ALBUTEROL 2.5MG INH SOL UD 3ML (DUONEB) NEB SCH (07:47)
[2023-02-04] MEDS: DOCUSATE SODIUM 100MG CAPSULE PO SCH (08:21)
[2023-02-04] MEDS: SIMETHICONE 80MG CHEW TAB PO SCH (08:21)
[2023-02-04 08:22] VITALS: BP 145/75
[2023-02-04] MEDS: LOSARTAN 50MG TABLET PO SCH (08:22)
[2023-02-04] MEDS: ATORVASTATIN 20 MG TAB PO SCH (08:23)
[2023-02-04 10:00] VITALS: BP 137/75; TEMP 97.5; O2SAT 94
== END 2023-02-04 12:39 | disposition home or self-care (01) | DRG 854 ==
LOC: EDBD 12:25 → M ED 12:25 → M SDC 16:46 → M PCU 22:35 → M SDC 01-25 10:35 → M PCU 01-25 10:35 → M MSPAV 01-25 18:48
PROVIDERS: ADMIT Internal Medicine; ATTEND Surgery
PROC: 0DTJ4ZZ Resection of Appendix, Percutaneous Endoscopic Approach (ICD-10-PCS; principal; 2023-01-24 19:00)
DX: A41.9 Sepsis, unspecified organism (principal); K35.20 Acute appendicitis with generalized peritonitis, without abscess; K91.89 Other postprocedural complications and disorders of digestive system; K56.7 Ileus, unspecified; E66.9 Obesity, unspecified; Z68.36 Body mass index [BMI] 36.0-36.9, adult; E78.5 Hyperlipidemia, unspecified; I10 Essential (primary) hypertension; Z79.82 Long term (current) use of aspirin; Z79.899 Other long term (current) drug therapy

== ENCOUNTER → 2023-06-25 | Outpatient (REF) | payer OTHER, MEDICARE ==
[~2023-06-25] MED LIST changes: +FLUT50SP17 NARES; +HYDR-3490 PO; +LOSA50TA28; +THERTAB21 PO
[2023-06-25 13:49] LABS: BASO # 0.1 10^3/uL (0.0-0.2); BASO % 0.9 % (0.0-1.0); EOS # 0.1 10^3/uL (0.0-0.5); EOS % 1.6 % (0.0-3.0); HEMATOCRIT 39.5 % (42.0-52.0); LYMPH # 1.9 10^3/uL (1.5-5.0); LYMPH % 27.9 % (24.0-44.0); MEAN CORPUSCULAR HEMOGLOBIN 28.3 pg (27.0-33.0); MEAN CORPUSCULAR HGB CONC 32.9 g/dl (32.0-36.5); MEAN CORPUSCULAR VOLUME 85.9 fl (80.0-96.0); MONO # 0.7 10^3/uL (0.0-0.8); MONO % 10.6 % (2.0-8.0); NEUTROPHILS # 4.1 10^3/uL (1.5-8.5); NEUTROPHILS % 58.7 % (36.0-66.0); PLATELET COUNT, AUTOMATED 220 10^3/uL (150-450); WHITE BLOOD COUNT 6.9 10^3/uL (4.0-10.0)
[2023-06-25 14:12] LABS: TOTAL IRON BINDING CAPACITY 349 UG/DL (250-425)
[2023-06-25 14:13] LABS: MAGNESIUM LEVEL 1.8 MG/DL (1.8-2.4)
[2023-06-25 14:14] LABS: IRON (FE) 66 UG/DL (65-175); PERCENT SATURATION 18.9 % (19.7-50.0)
[2023-06-25 14:19] LABS: FERRITIN 27.8 NG/ML (10.5-307.3)
[2023-06-25 14:20] LABS: VITAMIN B12 LEVEL 644 PG/ML (211-911)
[2023-06-25 14:21] LABS: FOLATE > 24.0 NG/ML (>5.4)
== END ==
LOC: M SFHCADAM 08:17
PROVIDERS: ATTEND Physician Assistant
DX: E78.00 Pure hypercholesterolemia, unspecified (principal); I10 Essential (primary) hypertension; D64.9 Anemia, unspecified; E83.42 Hypomagnesemia

== ENCOUNTER → 2024-07-22 | Outpatient (REF) | payer MEDICARE ==
[~2024-07-22] MED LIST changes: -FLUT50SP17 NARES; +FLUTISP NARES
[2024-07-22 13:52] LABS: HEMOGLOBIN A1c 5.8 % (4.0-6.0)
[2024-07-22 13:59] LABS: ALBUMIN 3.9 G/DL (3.2-5.2); ALKALINE PHOSPHATASE 107 U/L (40-129); ALT/SGPT 37 U/L (7.0-40); AST/SGOT 28 U/L (<34); BILIRUBIN,TOTAL 0.8 MG/DL (0.3-1.2); BLOOD UREA NITROGEN 25 MG/DL (9-23); CALCIUM LEVEL 10.1 MG/DL (8.3-10.6); CARBON DIOXIDE LEVEL 32 MMOL/L (20-31); CHLORIDE LEVEL 99 MMOL/L (98-107); CHOLESTEROL LEVEL 159 MG/DL (<200); CHOLESTEROL RISK RATIO 3.96 (<5); CREATININE FOR GFR 1.06 MG/DL (0.70-1.30); GLOMERULAR FILTRATION RATE > 60.0 (>49); GLUCOSE, FASTING 93 MG/DL (74-106); HDL CHOLESTEROL 40.1 MG/DL (>40); LDL CHOLESTEROL 95.9 MG/DL (<100); MAGNESIUM LEVEL 2.1 MG/DL (1.8-2.4); NON-HDL-C 118.9 MG/DL; POTASSIUM SERUM 4.5 MMOL/L (3.5-5.1); PSA SCREENING 3.12 NG/ML (< 4.00); SODIUM LEVEL 136 MMOL/L (136-145); TOTAL PROTEIN 7.2 G/DL (5.7-8.2); TRIGLYCERIDES LEVEL 115 MG/DL (<150)
[2024-07-22 14:00] LABS: THYROID STIMULATING HORMONE 2.809 uIU/ML (0.55-4.78)
== END ==
LOC: M SFHCADAM 08:25
PROVIDERS: ATTEND Physician Assistant
DX: I10 Essential (primary) hypertension (principal); E78.00 Pure hypercholesterolemia, unspecified; F41.9 Anxiety disorder, unspecified; E83.42 Hypomagnesemia; Z12.5 Encounter for screening for malignant neoplasm of prostate; Z13.1 Encounter for screening for diabetes mellitus
CPT/HCPCS: 80053; 80061; 83036; 83735; 84439; 84443; G0103

== ENCOUNTER 2024-12-03 10:01 | Day surgery (SDC) | payer MEDICARE ==
[~2024-12-03] VITALS: Ht 182.9 cm; Wt 113.4 kg
[~2024-12-03 10:01] MED LIST changes: +ESSETAB4 PO; -LOSA50TA28; +LOSA50TA28 PO; +MAG-400T7 PO
[2024-12-03 12:22] VITALS: BP 126/87; O2SAT 97
== END 2024-12-03 12:27 | disposition home or self-care (01) ==
LOC: M OPP 10:01
PROVIDERS: ATTEND Surgery
DX: Z12.11 Encounter for screening for malignant neoplasm of colon (principal); R19.5 Other fecal abnormalities; D12.2 Benign neoplasm of ascending colon; K57.30 Diverticulosis of large intestine without perforation or abscess without bleeding; K64.2 Third degree hemorrhoids; Z79.82 Long term (current) use of aspirin; Z79.51 Long term (current) use of inhaled steroids; Z79.899 Other long term (current) drug therapy; Z87.891 Personal history of nicotine dependence

== ENCOUNTER → 2025-03-23 | Outpatient (REF) | payer MEDICARE, MEDICAID ==
[2025-03-23 13:34] LABS: PLATELET COUNT, AUTOMATED 235 10^3/uL (150-450)
[2025-03-23 13:57] LABS: ALT/SGPT 28.0 U/L (7.0-40); AST/SGOT 26.0 U/L (<34); CALCIUM LEVEL 9.4 MG/DL (8.3-10.6); CARBON DIOXIDE LEVEL 30.0 MMOL/L (20-31); CHLORIDE LEVEL 100.0 MMOL/L (98-107); CREATININE FOR GFR 0.93 MG/DL (0.70-1.30); GLOMERULAR FILTRATION RATE 89.4 (>49); POTASSIUM SERUM 4.2 MMOL/L (3.5-5.1); SODIUM LEVEL 141.0 MMOL/L (136-145)
== END ==
LOC: M SFHCADAM 10:33
PROVIDERS: ATTEND Physician Assistant
DX: Z01.818 Encounter for other preprocedural examination (principal); I10 Essential (primary) hypertension; E78.00 Pure hypercholesterolemia, unspecified

== ENCOUNTER → 2025-07-28 | Outpatient (REF) | payer MEDICARE, MEDICAID ==
[2025-07-28 14:13] LABS: PSA SCREENING 4.05 NG/ML (< 4.00)
[2025-07-28 14:18] LABS: ALT/SGPT 25 U/L (7.0-40); AST/SGOT 22 U/L (<34); CALCIUM LEVEL 9.3 MG/DL (8.3-10.6); CARBON DIOXIDE LEVEL 32 MMOL/L (20-31); CHLORIDE LEVEL 100 MMOL/L (98-107); CREATININE FOR GFR 0.91 MG/DL (0.70-1.30); GLOMERULAR FILTRATION RATE > 90.0 (>49); POTASSIUM SERUM 4.5 MMOL/L (3.5-5.1); SODIUM LEVEL 139 MMOL/L (136-145)
[2025-07-28 14:51] LABS: ESTIMATED AVERAGE GLUCOSE 117.0 MG/DL (60-110)
== END ==
LOC: M SFHCADAM 08:00
PROVIDERS: ATTEND Physician Assistant
DX: I10 Essential (primary) hypertension (principal); R73.03 Prediabetes; Z12.5 Encounter for screening for malignant neoplasm of prostate
CPT/HCPCS: 80053; 83036; G0103